=== PATIENT | male | born 1940 | race Caucasian/White ===

== ENCOUNTER → 2018-03-07 | Outpatient (CLI) | payer OTHER ==
[~2018-03-07] MED LIST: ACET325 PO; ALBU90OI6 INH; BISA5EC PO; CHOL10002 PO; CITA20 PO; CYCL10 PO; DOCU100 PO; DULERA 100 MCG/13 GM INH; FLONASE ALLERG9.9 ML; GABA100 PO; LAVAP17G PO; MELO7.5 PO; ONDA4 PO; PROM25 PO; Prednisone20 MG PO; RANI150 PO; RIFA300 PO; TRAM50 PO; Zovirax400 MG PO
== END ==
LOC: LAB SHORT 11:58 → LAB 11:58
DX: L02.612 Cutaneous abscess of left foot (principal)
CPT/HCPCS: 87070; 87147; 87205

== ENCOUNTER 2018-07-13 16:26 | Emergency (ER) | payer OTHER ==
[~2018-07-13] VITALS: Ht 182.9 cm; Wt 93.0 kg
== END 2018-07-13 17:59 | disposition home or self-care (01) ==
LOC: ER 16:26
DX: S63.502A Unspecified sprain of left wrist, initial encounter (principal); W18.30XA Fall on same level, unspecified, initial encounter; Z88.0 Allergy status to penicillin; Z88.5 Allergy status to narcotic agent; Z79.899 Other long term (current) drug therapy; Z87.891 Personal history of nicotine dependence
CPT/HCPCS: 29125; 73110; 99283-25

== ENCOUNTER → 2021-11-15 | Outpatient (CLI) | payer OTHER ==
[2021-11-16 12:14] LABS: Adenovirus F 40/41 Not Detected (NOT DETECT); Astrovirus Not Detected (NOT DETECT); Campylobacter Sp Not Detected (NOT DETECT); Cryptosporidium Not Detected (NOT DETECT); Cyclospora Cayetanensis Not Detected (NOT DETECT); E. Coli O157 Not Detected (NOT DETECT); Entamoeba Histolytica Not Detected (NOT DETECT); Enteroaggregative E. coli-EAEC Not Detected (NOT DETECT); Enteropathogenic E. coli-EPEC Not Detected (NOT DETECT); Enterotoxigenic E. coli-ETEC Not Detected (NOT DETECT); Giardia Lamblia Not Detected (NOT DETECT); Norovirus GI/GII Not Detected (NOT DETECT); Plesiomonas Shigelloides Not Detected (NOT DETECT); Rotavirus A Not Detected (NOT DETECT); Salmonella Sp Not Detected (NOT DETECT); Sapovirus Not Detected (NOT DETECT); Shiga Toxin-prod E. coli-STEC Not Detected (NOT DETECT); Shigella/Enteroin E. coli-EIEC Not Detected (NOT DETECT); Vibrio Cholerae Not Detected (NOT DETECT); Vibrio Sp Not Detected (NOT DETECT); Yersinia Enterocolitica Not Detected (NOT DETECT)
== END ==
LOC: LAB SHORT 05:00
PROVIDERS: Physician Assistant
DX: R19.7 Diarrhea, unspecified (principal)
CPT/HCPCS: 87507

== ENCOUNTER → 2021-12-25 | Outpatient (CLI) | payer OTHER | END | disposition home or self-care (01) | LOC: LAB SHORT 09:00 → LAB 09:00 | DX: R19.7 Diarrhea, unspecified (principal) | CPT/HCPCS: 87177; 87209 ==

== ENCOUNTER → 2021-12-29 | Outpatient (CLI) | payer OTHER ==
[2021-12-30 19:44] LABS: Adenovirus F 40/41 Not Detected (NOT DETECT); Astrovirus Not Detected (NOT DETECT); Campylobacter Sp Not Detected (NOT DETECT); Cryptosporidium Not Detected (NOT DETECT); Cyclospora Cayetanensis Not Detected (NOT DETECT); E. Coli O157 Not Detected (NOT DETECT); Entamoeba Histolytica Not Detected (NOT DETECT); Enteroaggregative E. coli-EAEC Not Detected (NOT DETECT); Enteropathogenic E. coli-EPEC Not Detected (NOT DETECT); Enterotoxigenic E. coli-ETEC Not Detected (NOT DETECT); Giardia Lamblia Not Detected (NOT DETECT); Norovirus GI/GII Not Detected (NOT DETECT); Plesiomonas Shigelloides Not Detected (NOT DETECT); Rotavirus A Not Detected (NOT DETECT); Salmonella Sp Not Detected (NOT DETECT); Sapovirus Not Detected (NOT DETECT); Shiga Toxin-prod E. coli-STEC Not Detected (NOT DETECT); Shigella/Enteroin E. coli-EIEC Not Detected (NOT DETECT); Vibrio Cholerae Not Detected (NOT DETECT); Vibrio Sp Not Detected (NOT DETECT); Yersinia Enterocolitica Not Detected (NOT DETECT)
== END ==
LOC: LAB 17:13 → LAB SHORT 17:13
PROVIDERS: Nurse Practitioner Family
DX: R19.7 Diarrhea, unspecified (principal)
CPT/HCPCS: 87338; 87507

== ENCOUNTER → 2022-01-20 | Outpatient (CLI) | payer OTHER ==
[2022-01-20 18:09] LABS: BASOPHILS ABSOLUTE AUTO 0.04 K/mm3 (0.00-0.23); BASOPHILS PERCENT AUTO 1 % (0-2); EOSINOPHILS ABSOLUTE AUTO 0.14 K/mm3 (0.00-0.68); EOSINOPHILS PERCENT AUTO 2 % (0-6); Hematocrit 39.2 % (37.0-53.0); Hemoglobin 12.5 g/dL (13.5-17.5); IMMATURE GRAN ABSOLUTE AUTO 0.02 K/mm3 (0.00-0.10); IMMATURE GRAN PERCENT AUTO 0 % (0-1); LYMPHOCYTES ABSOLUTE AUTO 3.31 K/mm3 (0.84-5.20); LYMPHOCYTES PERCENT AUTO 38 % (21-46); MONOCYTES ABSOLUTE AUTO 0.81 K/mm3 (0.16-1.47); MONOCYTES PERCENT AUTO 9 % (4-13); Mean Corpuscular HGB Conc 31.9 g/dL (31.5-36.5); Mean Corpuscular Volume 103 fL (80-100); Mean Platelet Volume 11.3 fL (9.1-12.4); NEUTROPHILS ABSOLUTE AUTO 4.46 K/mm3 (1.96-9.15); NEUTROPHILS PERCENT AUTO 51 % (41-73); Platelet Count 151 K/mm3 (150-400); RDW Coefficient Variation 13.2 % (11.7-14.2); RDW Standard Deviation 51.1 fL (35.1-46.3); Red Blood Cell Count 3.79 M/mm3 (4.30-5.90); White Blood Cell Count 8.78 K/mm3 (4.00-11.30)
[2022-01-20 18:32] LABS: Albumin, Blood 3.8 g/dL (3.4-5.0); Albumin/Globulin Ratio 1.1 (0.8-1.8); Bilirubin, Total 0.3 mg/dL (0.1-1.0); Bun/Creatinine Ratio 17.9 (12.0-20.0); Calcium, Blood 9.2 mg/dL (8.5-10.1); Creatinine, Blood 1.17 mg/dL (0.60-1.20); Globulin, Blood 3.4 g/dL (2.2-4.0); Percent Saturation 22.1 % (20.0-50.0); Potassium, Blood 3.9 mmol/L (3.5-5.5); Thyroid Stimulating Hormone 4.34 uIU/mL (0.360-4.800); Total Protein, Blood 7.2 g/dL (6.4-8.2)
== END | disposition home or self-care (01) ==
LOC: LAB SHORT 08:45 → LAB 08:45
PROVIDERS: Nurse Practitioner Family
DX: D64.9 Anemia, unspecified (principal); R53.83 Other fatigue
CPT/HCPCS: 80053; 82728; 83540; 83550; 84443; 85025

== ENCOUNTER → 2022-06-07 | Outpatient (CLI) | payer OTHER | LOC: LAB 20:00 → LAB SHORT 20:00 | DX: K58.0 Irritable bowel syndrome with diarrhea (principal) | CPT/HCPCS: 83993 ==

== ENCOUNTER 2022-08-10 06:58 | Emergency (ER) | payer OTHER ==
[~2022-08-10] VITALS: Ht 182.9 cm; Wt 72.6 kg
[2022-08-10] MEDS ORDERED: LOPERAMIDE212 PO (07:16)
[2022-08-10] MEDS ORDERED: LOSA50 PO (07:16)
[2022-08-10] MEDS ORDERED: ATORVASTATIN CA20 MG PO (07:17)
[2022-08-10] MEDS ORDERED: PANTOPRAZOLE SO40 M2 PO (07:17)
[2022-08-10] MEDS ORDERED: NEURONTIN300 MG PO (07:17)
[2022-08-10 08:15] VITALS: BP 135/69
== END 2022-08-10 08:38 | disposition home or self-care (01) ==
LOC: ER 06:58
DX: S16.1XXA Strain of muscle, fascia and tendon at neck level, initial encounter (principal); S00.03XA Contusion of scalp, initial encounter; S80.812A Abrasion, left lower leg, initial encounter; S80.811A Abrasion, right lower leg, initial encounter; E78.00 Pure hypercholesterolemia, unspecified; J44.9 Chronic obstructive pulmonary disease, unspecified; F17.210 Nicotine dependence, cigarettes, uncomplicated; Z88.0 Allergy status to penicillin; Z88.5 Allergy status to narcotic agent; Z79.51 Long term (current) use of inhaled steroids; Z79.899 Other long term (current) drug therapy; W10.9XXA Fall (on) (from) unspecified stairs and steps, initial encounter
CPT/HCPCS: 70450; 72125; A9270

== ENCOUNTER → 2022-08-31 | Outpatient (CLI) | payer OTHER ==
[~2022-08-31] MED LIST changes: +ATORVASTATIN CA20 MG PO; +LOPERAMIDE212 PO; +LOSA50 PO; +NEURONTIN300 MG PO; +PANTOPRAZOLE SO40 M2 PO
[2022-08-31 17:14] LABS: BASOPHILS ABSOLUTE AUTO 0.04 K/mm3 (0.00-0.23); BASOPHILS PERCENT AUTO 0 % (0-2); EOSINOPHILS ABSOLUTE AUTO 1.46 K/mm3 (0.00-0.68); EOSINOPHILS PERCENT AUTO 16 % (0-6); Hemoglobin 11.4 g/dL (13.5-17.5); IMMATURE GRAN ABSOLUTE AUTO 0.01 K/mm3 (0.00-0.10); IMMATURE GRAN PERCENT AUTO 0 % (0-1); LYMPHOCYTES ABSOLUTE AUTO 3.37 K/mm3 (0.84-5.20); LYMPHOCYTES PERCENT AUTO 37 % (21-46); MONOCYTES ABSOLUTE AUTO 0.66 K/mm3 (0.16-1.47); MONOCYTES PERCENT AUTO 7 % (4-13); Mean Corpuscular HGB 33.6 pg (26.0-34.0); Mean Corpuscular HGB Conc 32.6 g/dL (31.5-36.5); Mean Corpuscular Volume 103 fL (80-100); Mean Platelet Volume 11.6 fL (9.1-12.4); NEUTROPHILS ABSOLUTE AUTO 3.58 K/mm3 (1.96-9.15); NEUTROPHILS PERCENT AUTO 39 % (41-73); Platelet Count 107 K/mm3 (150-400); RDW Coefficient Variation 14.3 % (11.7-14.2); RDW Standard Deviation 54.7 fL (35.1-46.3); Red Blood Cell Count 3.39 M/mm3 (4.30-5.90); White Blood Cell Count 9.12 K/mm3 (4.00-11.30)
[2022-08-31 18:06] LABS: C-REACTIVE PROTEIN, EXT RANGE <0.290 mg/dL (0.000-0.300)
[2022-08-31 18:18] LABS: Alanine Aminotransfer (ALT/SGP 23 U/L (12-78); Albumin, Blood 3.4 g/dL (3.4-5.0); Alk Phos 74 U/L (50-136); Anion Gap Unable to Calculate mmol/L (6-16); Aspartate Aminotrans (AST/SGOT 20 U/L (12-37); Bilirubin, Total 0.3 mg/dL (0.1-1.0); Blood Urea Nitrogen 16 mg/dL (8-24); Bun/Creatinine Ratio 13.6 (12.0-20.0); CO2, Blood 28 mmol/L (21-32); Calcium, Blood 8.9 mg/dL (8.5-10.1); Chloride, Blood 116 mmol/L (98-108); Creatinine, Blood 1.18 mg/dL (0.60-1.20); Globulin, Blood 3.4 g/dL (2.2-4.0); Glomerular Filtration Rate 62 (60-); Glucose, Blood 114 mg/dL (70-99); Potassium, Blood 4.8 mmol/L (3.5-5.5); Sodium, Blood 143 mmol/L (136-145); Total Protein, Blood 6.8 g/dL (6.4-8.2)
== END | disposition home or self-care (01) ==
LOC: LAB SHORT 12:00 → LAB 12:00
PROVIDERS: Nurse Practitioner Family
DX: I10 Essential (primary) hypertension (principal); R63.4 Abnormal weight loss
CPT/HCPCS: 80053; 84443; 85025; 85651; 86140

== ENCOUNTER 2022-11-15 09:07 | Day surgery (SDC) | payer OTHER ==
[~2022-11-15] VITALS: Ht 172 cm; Wt 71.5 kg
[~2022-11-15 09:07] MED LIST changes: +ALBU90OI INH; +LOPE2C PO
--- NOTE | 2022-11-15 10:06 | NUR ---
11/15/22 [id number] Maty Martin HISTORY, CHART, MEDICATIONS AND ALLERGIES REVIEWED BEFORE START OF PROCEDURE. PATIENT CONFIRMS NPO STATUS AND AGREES WITH SCHEDULED PROCEDURE. 3-LEAD EKG REVIEWED WITH PHYSICIAN PRIOR TO START OF PROCEDURE. MONITOR INTACT WITH CONTINUOUS PULSE OXIMETRY,CAPNOGRAPHY, 3-LEAD EKG, INTERMITTENT BP. SUPPLEMENTAL O2 TO BE TITRATED THROUGHOUT PROCEDURE TO MAINTAIN O2 SATURATION ABOVE 90%. PATIENT DETERMINED TO BE ASA APPROPRIATE FOR PROPOFOL SEDATION PRIOR TO START OF PROCEDURE BY
[2022-11-15 10:26] VITALS: BP 140/60
--- NOTE | 2022-11-15 10:48 | NUR ---
History, Chart, Medications and Allergies reviewed before start of procedure. Ambulatory in Day Surgery. Pre-Op teaching done. Pt verbalizes understanding. Patient confirms NPO status and agrees with scheduled surgery. Patient states colon prep results light yellow with small amounts of sediment. Patient States Post-Procedure ride home has been arranged.
[2022-11-15 12:55] VITALS: BP 116/72
[2022-11-15 13:18] VITALS: BP 154/82
--- NOTE | 2022-11-15 13:33 | NUR ---
Patient up to Ambulate independently. Gait steady. Discharge instructions reviewed with patient. Patient verbalizes understanding. Copy given to patient to take home. Patient States Post-Procedure ride home has been arranged. Discharged via wheelchair to private car for ride home. ALL BELONGINGS RETURNED TO PATIENT.
== END 2022-11-15 22:34 | disposition home or self-care (01) ==
LOC: ORSCMMR 09:07 → ORD 09:07 → ORSCMMR 09:10 → ORD 10:30
PROVIDERS: Internal Medicine Gastroenterology
PROC: 0DBK8ZX Excision of Ascending Colon, Via Natural or Artificial Opening Endoscopic, Diagnostic (ICD-10-PCS; principal; 2022-11-15 10:30)
PROC: 0DBL8ZX Excision of Transverse Colon, Via Natural or Artificial Opening Endoscopic, Diagnostic (ICD-10-PCS; principal; 2022-11-15 10:30)
PROC: 0DBN8ZX Excision of Sigmoid Colon, Via Natural or Artificial Opening Endoscopic, Diagnostic (ICD-10-PCS; principal; 2022-11-15 10:30)
DX: R19.7 Diarrhea, unspecified (principal); D12.5 Benign neoplasm of sigmoid colon; D12.3 Benign neoplasm of transverse colon; E78.00 Pure hypercholesterolemia, unspecified; J44.9 Chronic obstructive pulmonary disease, unspecified; F17.210 Nicotine dependence, cigarettes, uncomplicated; F32.A Depression, unspecified; I10 Essential (primary) hypertension; Z79.899 Other long term (current) drug therapy
CPT/HCPCS: 88305; J0171; J2704; J7120

== ENCOUNTER → 2023-04-15 | Outpatient (CLI) | payer OTHER ==
[2023-04-24 06:36] LABS: PANCREATIC ELASTASE,FECAL <10 ug/g (>=100)
== END ==
LOC: LAB SHORT 13:00 → LAB 13:00
PROVIDERS: Family Medicine
DX: K52.9 Noninfective gastroenteritis and colitis, unspecified (principal)
CPT/HCPCS: 82653

== ENCOUNTER → 2025-01-07 | Outpatient (CLI) | payer OTHER ==
[2025-01-07 18:30] LABS: BASOPHILS ABSOLUTE AUTO 0.02 K/mm3 (0.00-0.23); BASOPHILS PERCENT AUTO 0 % (0-2); EOSINOPHILS ABSOLUTE AUTO 0.05 K/mm3 (0.00-0.68); EOSINOPHILS PERCENT AUTO 1 % (0-6); Hematocrit 36.1 % (37.0-53.0); Hemoglobin 11.9 g/dL (13.5-17.5); IMMATURE GRAN ABSOLUTE AUTO 0.02 K/mm3 (0.00-0.10); IMMATURE GRAN PERCENT AUTO 0 % (0-1); LYMPHOCYTES ABSOLUTE AUTO 4.67 K/mm3 (0.84-5.20); LYMPHOCYTES PERCENT AUTO 55 % (21-46); MONOCYTES ABSOLUTE AUTO 0.74 K/mm3 (0.16-1.47); MONOCYTES PERCENT AUTO 9 % (4-13); Mean Corpuscular HGB Conc 33.0 g/dL (31.5-36.5); Mean Corpuscular Volume 100 fL (80-100); NEUTROPHILS ABSOLUTE AUTO 2.95 K/mm3 (1.96-9.15); NEUTROPHILS PERCENT AUTO 35 % (41-73); NRBC ABSOLUTE 0.00 K/mm3 (0.00-0.02); NRBC Auto 0.0 /100 WBC (0.0-0.2); Platelet Count 131 K/mm3 (150-400); RDW Coefficient Variation 13.8 % (11.7-14.2); RDW Standard Deviation 50.7 fL (35.1-46.3)
[2025-01-07 22:07] LABS: Alanine Aminotransfer (ALT/SGP 31 U/L (12-78); Albumin, Blood 3.7 g/dL (3.4-5.0); Albumin/Globulin Ratio 0.9 (0.8-1.8); Anion Gap 5 mmol/L (3-11); Aspartate Aminotrans (AST/SGOT 29 U/L (12-37); Bilirubin, Total 0.5 mg/dL (0.1-1.0); Blood Urea Nitrogen 20 mg/dL (8-24); CHOL/HDL RATIO 1.9; CO2, Blood 28 mmol/L (21-32); Calcium, Blood 8.4 mg/dL (8.5-10.1); Chloride, Blood 107 mmol/L (98-108); Cholesterol 102 mg/dL (50-200); Creatinine, Blood 1.19 mg/dL (0.60-1.20); Ferritin, Serum 275 ng/mL (26-388); Globulin, Blood 3.9 g/dL (2.2-4.0); Glucose, Blood 92 mg/dL (70-99); HDL Cholesterol 53 mg/dL (>39); LDL/HDL RATIO 0.6; Low Density Lipoprotein Chol 34 mg/dL (0-110); Potassium, Blood 4.4 mmol/L (3.5-5.5); Sodium, Blood 136 mmol/L (136-145); Total Iron Binding Capacity 305 ug/dL (250-450); Total Protein, Blood 7.6 g/dL (6.4-8.2); Triglycerides 75 mg/dL (30-160); Very Low Density Lipoprot Chol 15 mg/dL (6-32)
== END ==
LOC: LAB SHORT 17:02 → LAB 17:02
PROVIDERS: Family Medicine
DX: E78.2 Mixed hyperlipidemia (principal); K86.81 Exocrine pancreatic insufficiency; R73.9 Hyperglycemia, unspecified; Z86.2 Personal history of diseases of the blood and blood-forming organs and certain disorders involving the immune mechanism; Z79.899 Other long term (current) drug therapy; I10 Essential (primary) hypertension
CPT/HCPCS: 80053; 80061; 82607; 82728; 83036; 83540; 83550; 83735; 85025